=== PATIENT | female | born 1945 | race Caucasian/White ===

== ENCOUNTER 2016-06-20 07:23 | Day surgery (SDC) | payer OTHER ==
[~2016-06-20 07:23] MED LIST: ASPIRIN EC81 MG PO; CEFTIN500 MG PO; ESTRACE1 MG PO; ESTRACE42.5 GM VG; FOLTX TABLET1 EACH PO; KLONOPIN0.5 MG PO; NITROFURANTOIN100 MG PO; OMEPRAZOLE20 MG PO; PHENERGAN25 M1 PO; PREDNISONE10 MG PO; PREDNISONE20 MG PO; SYNTHROID125 MCG PO; TAMIFLU75 MG PO; TYLENOL EXTRA500 MG PO; ULTRAM50 MG PO; VITAMIN C1000 M1 PO; VITAMIN D1000 UNI1 PO; VITAMIN D31000 UNI1 PO
== END 2016-06-20 13:55 | disposition home or self-care (01) ==
LOC: SDCH 07:23
DX: K20.9 Esophagitis, unspecified (principal); K29.70 Gastritis, unspecified, without bleeding; K44.9 Diaphragmatic hernia without obstruction or gangrene; F17.210 Nicotine dependence, cigarettes, uncomplicated; Z79.899 Other long term (current) drug therapy; M19.90 Unspecified osteoarthritis, unspecified site; R06.02 Shortness of breath; R35.0 Frequency of micturition; M54.9 Dorsalgia, unspecified; M25.50 Pain in unspecified joint
CPT/HCPCS: J2704